=== PATIENT | female | born 1995 | race Hispanic/Latino ===

== ENCOUNTER 2024-07-05 18:17 | Emergency (ER) | payer OTHER, SELFPAY ==
[2024-07-05 18:18] VITALS: BP 126/79
--- NOTE | 2024-07-05 18:57 | ED.MUSCINJ ---
HPI-Injury
General
Chief Complaint: Musculo-Skeletal Complaint
Source: patient
Exam Limitations: none
Time Seen by Provider: 07/05/24 18:24
History of Present Illness-Injury
Initial Injury comments:
28-year-old female presents complaining of increased persistent right ankle pain. She injured her ankle several months ago and was told it was a sprain. Never had any imaging studies. She wore an Aircast for a little and it seemed to improve.
However over the past week has gotten worse. The pain is along the medial ankle to the dorsum of the foot with occasional numbness. She fell earlier today it was more swollen and discolored. She took ibuprofen for this. No fevers or rash. No
other complaints
Phy Exam
Physical Exam
Physical Exam:
General: Well-appearing female no acute respiratory distress
HEENT: NC/AT
MSK: Right ankle tenderness over the anterior tibial talar joint as well as the medial aspect of the ankle. Mild soft tissue swelling. Ankle is stable no increased pain with resisted eversion or inversion.
Vascular: 2+ dorsalis pedis pulse right foot
Neurologic: Good sensation right foot
Injury Course
Orders/Labs/Results
Orders:
Orders
07/05/24 18:54
CR Ankle - Right Min 3 Views * Urgent
Comment:
Reason For Exam: pain, medial ankle
07/05/24 20:19
Ortho Boot Right- Treatment ONCE
Short or tall?: Tall
MDM/Problems Addressed
Differential Diagnosis Includes:
Right ankle pain. Question tendinitis versus sprain versus arthritis or fracture. No signs of septic arthritis
Will obtain x-rays of right ankle. If negative suspect patient may benefit from a walking boot and orthopedic follow-up
*Critical Care Note
Total Time (30-74mins, 75-104mins- exclusive of procedures): Not Applicable
Update Note
Update Note:
X-rays of the right ankle were personally visualized and are negative for acute finding. Suspect ongoing inflammation. Perhaps there is soft tissue damage within the ankle however this is not evident of course on x-ray today. Recommend orthopedic
follow-up. For symptomatic relief and help ambulating, she was provided an orthopedic boot
ED Attending Note
-
Portions of this chart may have been created with voice recognition software.� Occasional wrong word or��sound alike� substitutions may have occurred due to the inherent limitations of voice recognition software.
Discharge Plan
Departure
Patient Disposition: Home (Routine Discharge)
Date of Disposition: 07/05/24
Time of Disposition: 20:28
Patient with high blood pressure during this ER visit?: No
Discharge Problem:
Ankle pain
Instructions: Muscle and Bone Pain (DC)
Referrals:
Bernard Cutler MD [Active] -
Juanita Dang NP [Family Provider] -
Activity Restrictions/Additional Instructions:
Use boot for support and ambulating. Continue with ibuprofen or Tylenol. Follow-up with orthopedics for further evaluation
Interventions
Interventions:
*Risk Screen - Suicide Last Done: 07/05/24 18:56
*General Assessment Last Done: 07/05/24 18:56
*Neglect/Abuse Screening Last Done: 07/05/24 18:56
ED- Fall Risk Assessment Last Done: 07/05/24 18:56
ED-Musculoskeletal Assessment Last Done: 07/05/24 18:56
Discharge Date and Time
Print Language: ICELANDIC
== END 2024-07-05 20:52 | disposition home or self-care (01) ==
LOC: EMR 18:17
PROVIDERS: EMERGENCY PHYSICIAN Student in an Organized Health Care Education/Training Program; FAMILY PHYSICIAN Nurse Practitioner Adult Health
DX: M25.571 Pain in right ankle and joints of right foot (principal); R20.0 Anesthesia of skin; W19.XXXA Unspecified fall, initial encounter
CPT/HCPCS: 99283; 29515; 73610

== ENCOUNTER 2025-02-03 20:20 | Emergency (ER) | payer OTHER, SELFPAY ==
[2025-02-03 20:31] VITALS: BP 120/76
--- NOTE | 2025-02-03 22:08 | ED.GENMED ---
History of Present Illness
General
Chief Complaint: Head Injury
Source: patient
Exam Limitations: none
Time Seen by Provider: 02/03/25 21:24
History of Present Illness
History of Present Illness:
Patient stood up hitting her head on the ceiling. Occurred earlier today. Ongoing headache. No neck pain no nausea photophobia or other complaints.
Past History
Past History
ED Past Medical History: None
ED Past Surgical History: Cholecystectomy, , Tonsilectomy and Other
Review of Systems
Review of Systems
All Other Systems: Not applicable
Neurological: Denies dizzy, weakness or numbness
Phy Exam
Physical Exam
Physical Exam:
GENERAL: Alert and oriented in no apparent distress. No scalp swelling. No hematoma
EYE: Orbits normal.
NECK: Supple, no significant adenopathy.
ENT: Pharynx without erythema
CARDIAC: Regular rate and rhythm without any obvious murmurs.
LUNGS: Clear breath sounds,normal
ABDOMEN: Soft, without focal tenderness or distention
NEUROLOGICAL: Alert and oriented , grossly non-focal
SKIN: Warm and dry, no rash or lesion, no discoloration, skin intact.
MUSCULOSKELETAL: No edema,no deformity.Good color
PSYCH: Normal and appropriate interaction.
Course
Orders/Labs/Results
Orders:
Orders
02/03/25 21:34
CT Head W/o Iv Contrast Urgent
Comment:
Reason For Exam: Head injury
Vital Signs
Initial and Last Documented VS:
Initial Vital Signs
Temp Pulse Resp BP Pulse Ox
97.3 F 72 17 120/76 99
02/03/25 20:31 02/03/25 20:31 02/03/25 20:31 02/03/25 20:31 02/03/25 20:31
Last Documented Vital Signs
Temp Pulse Resp BP Pulse Ox
97.3 F 72 17 120/76 99
02/03/25 20:31 02/03/25 20:31 02/03/25 20:31 02/03/25 20:31 02/03/25 20:31
MDM/Problems Addressed
Differential Diagnosis Includes:
Low clinical suspicion for serious head injury or bleed. However with mechanism ongoing headache patient will receive a CT of the head
*Radiology
Radiology exam reviewed: radiology read reviewed (neg)
*Pulse Oximetry
Patient hypoxic: no
*Critical Care Note
Total Time (30-74mins, 75-104mins- exclusive of procedures): Not Applicable
ED Attending Note
-
Portions of this chart may have been created with voice recognition software.� Occasional wrong word or��sound alike� substitutions may have occurred due to the inherent limitations of voice recognition software.
Discharge Plan
Departure
Patient Disposition: Home (Routine Discharge)
Date of Disposition: 02/03/25
Time of Disposition: 23:09
Patient with high blood pressure during this ER visit?: No
Discharge Problem:
Head injury
Instructions: Head Injury in Adults (DC)
Referrals:
Juanita Dang NP [Family Provider] - Follow up in 2-3 days
Interventions
Interventions:
*Risk Screen - Suicide Last Done: 02/03/25 20:33
*General Assessment Last Done: 02/03/25 20:33
*Neglect/Abuse Screening Last Done: 02/03/25 20:33
*ED COVID-19 Vaccine History Last Done: 02/03/25 20:33
ED- Neurological Assessment Last Done: 02/03/25 22:00
ED-Skin Assessment Last Done: 02/03/25 22:00
Discharge Date and Time
Print Language: SWEDISH
[2025-02-03 23:17] VITALS: BP 115/64
== END 2025-02-03 23:21 | disposition home or self-care (01) ==
LOC: EMR 20:20
PROVIDERS: EMERGENCY PHYSICIAN Emergency Medicine; FAMILY PHYSICIAN Nurse Practitioner Adult Health
DX: S09.90XA Unspecified injury of head, initial encounter (principal); W22.09XA Striking against other stationary object, initial encounter
CPT/HCPCS: 99284; 70450